=== PATIENT | male | born 1970 | race Caucasian/White ===

== ENCOUNTER → 2016-06-27 | Outpatient (CLI) | payer BC ==
[2016-06-27 10:49] LABS: BASO # 0.1 x10^3/uL (0.0-0.2); BASO % 1 % (0-3); EOS % 3 % (0-3); HEMATOCRIT 42.9 % (39.0-53.0); HEMOGLOBIN 14.6 g/dL (13.0-17.5); LYMPH # 2.5 x10^3/uL (1.0-4.8); LYMPH % 36 % (24-48); MEAN CORPUSCULAR HEMOGLOBIN 30 pg (25-35); MEAN CORPUSCULAR HGB CONC 34 g/dL (31-37); MEAN CORPUSCULAR VOLUME 89 fL (79-100); MONO % 8 % (0-9); NEUT % 54 % (31-73); PLATELET COUNT 208 x10^3/uL (140-400); RED BLOOD COUNT 4.84 x10^6/uL (4.30-5.70); RED CELL DISTRIBUTION WIDTH 13.2 % (11.5-14.5); WHITE BLOOD COUNT 7.1 x10^3/uL (4.0-11.0)
[2016-06-27 11:02] LABS: ALBUMIN 3.7 g/dL (3.4-5.0); ALBUMIN/GLOBULIN RATIO 0.9 (1.0-1.7); CALCIUM 8.9 mg/dL (8.5-10.1); CREATININE 0.9 mg/dL (0.7-1.3); GFR 90.8; POTASSIUM 4.2 mmol/L (3.5-5.1); TOTAL BILIRUBIN 0.4 mg/dL (0.2-1.0); TOTAL PROTEIN 7.9 g/dL (6.4-8.2)
== END | disposition home or self-care (01) ==
LOC: LAB 10:18
PROVIDERS: ATTEND Family Medicine
DX: E11.9 Type 2 diabetes mellitus without complications (principal)
CPT/HCPCS: 36415; 80053; 83036; 85027

== ENCOUNTER 2019-11-25 05:34 | Emergency (ER) | payer BC, OTHER ==
[~2019-11-25] VITALS: Ht 182.9 cm; Wt 113.6 kg
[2019-11-25 05:43] VITALS: BP 153/88
[2019-11-25] MEDS ORDERED: TETRACAINE 0.5% OPHTH SOLUTION 4ML BOTTLE. OS ONE (06:30)
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
--- NOTE | 2019-11-25 06:57 | PHYS DOC ---
Past Medical History Past Medical History: No Pertinent History Additional Past Medical Histor: BORDERLINE DM Past Surgical History: Other Additional Past Surgical Histo: "LEFT PALM" Smoking Status: Never Smoker Alcohol Use: None General Adult EDM: Chief Complaint: OTHER COMPLAINTS HPI: HPI: Patient is a 49 year old male who presents with who presents to the emergency room complaining of left eye pain that has been ongoing for the last week. He states that he woke up with it a week ago and initially was intermittent. He states now that it is constant and the pain is getting worse. He states it woke him up from sleep last night and continues to be painful. He denies any visual changes. Pain does not increase with eye movement. He is not had any drainage or redness of the eye. He feels like his eye looks normal compared to previous. He has poor vision in that eye from childhood. He states it does not feel like a headache but thinks that it could be a sinus infection. Review of Systems: Review of Systems: General: Denies fever, chills, sweats, fatigue Eyes: Denies drainage, blurred vision, eye redness reports eye pain HENT: Denies rhinorrhea, sore throat, earache Respiratory: Denies cough, shortness of breath, wheezing Cardiac: Denies edema, palpitations, chest pain GI: Denies abdominal pain, Nausea, vomiting MSK: Denies back pain, neck pain Skin: Denies rash, jaundice Neuro: Denies headache, dizziness Psychiatric: Denies SI/HI Heart Score: Risk Factors: Risk Factors: DM, Current or recent (<one month) smoker, HTN, HLP, family history of CAD, obesity. Risk Scores: Score 0 - 3: 2.5% MACE over next 6 weeks - Discharge Home Score 4 - 6: 20.3% MACE over next 6 weeks - Admit for Clinical Observation Score 7 - 10: 72.7% MACE over next 6 weeks - Early Invasive Strategies Current Medications: Current Medications Medications (Trade) Dose Ordered Sig/Jaguar Start Time Stop Time Status Last Admin Dose Admin Tetracaine HCl (Tetracaine) 1 drop 1X ONCE 11/25/19 06:30 11/25/19 06:31 DC Allergies: Allergies: Allergies Coded Allergies Type Severity Reaction Last Updated Verified No Known Drug Allergies 11/25/19 No Physical Exam: PE: General: Awake, alert, NAD. Well Nourished, well hydrated. Cooperative HEENT: Atraumatic, airway patent, moist oral mucosa Eyes: EOMI, PERRL, conjunctiva normal, eyelids normal Neck: Supple, trachea midline Respiratory: CTA bilaterally, normal effort, no wheezing/crackles CV: RRR, no murmur, cap refill <2 GI: Soft, nondistended, nontender, no masses MSK: No obvious deformities Skin: Warm, dry, intact Neuro: A&O x3, speech NL, sensory and motor grossly intact, no focal deficits, CN 2-12 intact Psych: Normal affect, normal mood, not suicidal or homicidal Current Patient Data: Vital Signs: Vital Signs Date Time Temp Pulse Resp B/P (MAP) Pulse Ox O2 Delivery O2 Flow Rate FiO2 11/25/19 05:43 98.6 66 16 153/88 (109) 97 Room Air 98.6 EKG: EKG: [] Radiology/Procedures: Radiology/Procedures: [] Course & Med Decision Making: Course & Med Decision Making Pertinent Labs and Imaging studies reviewed. (See chart for details) Patient was evaluated upon the start of my shift. He did arrive 30 minutes prior to my arrival. Patient is a 49-year-old male who presents to the emergency room with left eye pain that is been ongoing for the last week. He does not have any visual c hanges and his eye appears normal on exam. Pupils were reactive. He does not have a fixed pupil that would be suggestive of glaucoma. There is no signs of infection. There is no signs of foreign body. Orbit CT was ordered. CT negative. It is unlikely this is related to an intracranial pathology. Patient did not have sudden onset severe pain, neurologic deficits, or constant pain that would be suggestive of an intracranial hemorrhage. Tetracaine drops helped with pain making eye more likely cause of pain. No abrasion seen. Unable to obtain pressures due to lack of equipment. Pupil is reactive making acute closure glaucoma less likely. Will send to Ophthalmology this morning. Patient requested to have his glucose checked. He hasn't seen a doctor in 6 months and is not on his metformin anymore. Glucose >300. Will restart metformin. Patient's test results and vitals while in the ED were fully reviewed and discussed with the patient. Patient is stable and at this time does not need admission to the hospital. We have discussed strict return precautions and the importance of following up with their Primary Care Physician. Patient stated understanding and was given an opportunity to ask any questions. Patient is in agreement with plan. Dragon Disclaimer: Dragon Disclaimer: This electronic medical record was generated, in whole or in part, using a voice recognition dictation system. Departure Departure Impression: Primary Impression: Eye pain Disposition: HOME, SELF-CARE Condition: STABLE Referrals: Aicha XIE MD (PCP) ROMAN ELENA MD Additional Instructions: Thank you for choosing [facility]. You were seen today for left eye pain. You had a CT of your orbits that was normal. You received tetracaine eye drops while in the Emergency Room. At this time it is unclear what is causing your pain and we recommend following up with Ophthalmology this morning. Please return to the Emergency Room if you develop vision loss, severe headache, vomiting, numbness or weakness, or anything else that concerns you. Scripts Metformin Hcl (METFORMIN HCL) 500 Mg Tablet 500 MG PO BIDWMEALS for ANTI-DIABETIC, #60 TAB 0 Refills Prov: PORSHA DREW MD 11/25/19 Justicifation of Admission Dx: Justifications for Admission: Justification of Admission Dx: No PORSHA DREW MD Nov 25, 2019 06:57
[2019-11-25] MEDS ORDERED: METF500T16 PO (07:59)
== END 2019-11-25 08:07 | disposition home or self-care (01) ==
LOC: ER 05:34
DX: H57.12 Ocular pain, left eye (principal)
CPT/HCPCS: 70480; 82962; 99284